=== PATIENT | female | born 1950 ===

== ENCOUNTER 2022-12-07 09:15 | Inpatient (IN) | payer OTHER ==
[~2022-12-07] VITALS: Ht 165.1 cm; Wt 81.6 kg
[~2022-12-07 09:15] MED LIST: GLUCOT PO; GLUCOTROL XL5 MG PO
[2022-12-13] MEDS ORDERED: TRAM1TAB98 PO (10:45)
[2022-12-13] MEDS ORDERED: PEPCID AC20 MG PO (10:45)
== END 2022-12-13 12:05 | disposition home or self-care (01) | DRG 331 ==
LOC: SURH 12-10 07:00 → O/R 12-10 07:00 → SURG 12-10 09:15 → SURH 12-10 17:54
PROVIDERS: ADMIT Surgery; ATTEND Surgery
PROC: 0DBP4ZZ Excision of Rectum, Percutaneous Endoscopic Approach (ICD-10-PCS; 2022-12-10)
PROC: 0DJD8ZZ Inspection of Lower Intestinal Tract, Via Natural or Artificial Opening Endoscopic (ICD-10-PCS; 2022-12-10)
PROC: 0DTN4ZZ Resection of Sigmoid Colon, Percutaneous Endoscopic Approach (ICD-10-PCS; principal; 2022-12-10 09:30)
DX: K57.20 Diverticulitis of large intestine with perforation and abscess without bleeding (principal); R19.4 Change in bowel habit; E11.9 Type 2 diabetes mellitus without complications; Z20.822 Contact with and (suspected) exposure to COVID-19